=== PATIENT | male | born 1950 | race Caucasian/White ===

== ENCOUNTER 2017-07-16 22:10 | Inpatient (IN) | payer OTHER, MEDICARE ==
[~2017-07-16] VITALS: Ht 182.9 cm; Wt 110.8 kg
[~2017-07-16 22:10] MED LIST: DEPAKOTE ER500 MG PO; FINASTERIDE5 MG PO; FLOMAX0.4 MG PO; HYTRIN 5 M5 MG/1 CAP PO; LANTUS100 UNIT/M SUBQ; METFORMIN HCL500 MG PO; OXYCONTIN10 M1; PREDNISONE50 MG PO; PRILOSEC 20 MG20 MG PO; QUETIAPINE FUM300 MG PO; TRICOR145 MG PO; VENLAFAXIN75 MG/1 T2 PO; VENTOLIN HFA 1818 GM INH; XANAX1 MG PO
[2017-07-16 22:24] VITALS: BP 182/89
[2017-07-16] MEDS ORDERED: ASPIR 8181 MG PO (22:27)
[2017-07-16] MEDS ORDERED: DIVALPROEX SOD500 M1 PO (22:27)
[2017-07-16] MEDS ORDERED: XANAX1 MG PO (22:27)
[2017-07-16] MEDS ORDERED: VITAMIN D5000 UNIT PO (22:28)
[2017-07-16] MEDS ORDERED: TRICOR145 MG PO (22:28)
[2017-07-16] MEDS ORDERED: TRESIBA FL200 UNIT/1 SUBQ (22:29)
[2017-07-16] MEDS ORDERED: HUMALOG KW200 UNIT/1 SUBQ (22:29)
[2017-07-16] MEDS ORDERED: LOSARTAN-HCTZ1 EAC1 PO (22:30)
[2017-07-16] MEDS ORDERED: CONSTULOSE10 GM/152 PO (22:30)
[2017-07-16] MEDS ORDERED: PRILOSEC OTC20 MG PO (22:31)
[2017-07-16] MEDS ORDERED: FISH OIL 1,001000 M2 PO (22:31)
[2017-07-16] MEDS ORDERED: MS CONTIN15 MG PO (22:31)
[2017-07-16] MEDS ORDERED: FLOMAX0.4 MG PO (22:32)
[2017-07-16] MEDS ORDERED: XIFAXAN550 MG PO (22:32)
[2017-07-16] MEDS ORDERED: HYTRIN 1 MG CAP1 MG PO (22:32)
[2017-07-16] MEDS ORDERED: EFFEXOR XR75 MG PO (22:33)
[2017-07-16 22:43] LABS: HEMATOCRIT 37.6 % (42.0-52.0); HEMOGLOBIN 12.8 gm/dL (14.0-18.0); MCH 29.1 pg (26.0-34.0); MCV 85.6 fL (80.0-100.0); MPV 7.7 fl. (7.2-11.1); NUCLEATED RBCS 0 /100WBC; PLATELET COUNT* 158 thou/uL (150-400); RBC 4.39 mil/uL (4.50-6.00); RDW-CV 15.7 % (10.5-14.5); WBC 9.6 thou/uL (4.0-11.0)
[2017-07-16 22:52] LABS: ANION GAP 11 mmol/L (7-16); BUN 31 mg/dL (7-18); CALCIUM 9.4 mg/dL (8.5-10.1); CHLORIDE 95 mmol/L (98-107); CO2 26 mmol/L (21-32); CREATININE 1.8 mg/dL (0.6-1.3); GLUCOSE 236 mg/dL (70-99); POTASSIUM 5.2 mmol/L (3.5-5.1); SODIUM 132 mmol/L (136-145)
[2017-07-16 23:02] LABS: ALBUMIN 3.3 g/dL (3.4-5.0); ALKALINE PHOSPHATASE 41 U/L (46-116); NT-PRO BRAIN NAT PEPTIDE 182 pg/mL (<300); SGOT 123 U/L (15-37); SGPT 106 U/L (30-65); TOTAL BILIRUBIN 1.4 mg/dL (<0.1-1.0); TOTAL PROTEIN 8.4 g/dL (6.4-8.2)
[2017-07-16 23:18] LABS: LIPASE 4240 U/L (73-393)
[2017-07-16 23:21] LABS: URINE BILIRUBIN NEGATIVE (Negative); URINE BLOOD NEGATIVE (Negative); URINE CLARITY CLEAR; URINE COLOR YELLOW; URINE GLUCOSE-RANDOM 1+ (Negative); URINE KETONES NEGATIVE (Negative); URINE LEUKOCYTES-REFLEX NEGATIVE (Negative); URINE NITRITE-REFLEX NEGATIVE (Negative); URINE PROTEIN 1+ (Negative); URINE SPECIFIC GRAVITY 1.015 (1.005-1.030)
[2017-07-16 23:22] LABS: TROPONIN-I LEVEL <0.06 ng/mL (<0.06)
[2017-07-16 23:56] LABS: ABSOLUTE LYMPHOCYTES 0.9 thou/uL (0.8-5.3); ABSOLUTE NEUTROPHILS 7.8 thou/uL (1.6-8.1)
[2017-07-16 23:57] LABS: PLATELET ESTIMATE ADEQUATE
[2017-07-17 01:17] VITALS: BP 182/89
[2017-07-17 04:00] VITALS: BP 114/61
[2017-07-17 04:54] LABS: HEMATOCRIT 35.9 % (42.0-52.0); HEMOGLOBIN 12.1 gm/dL (14.0-18.0); MCH 28.7 pg (26.0-34.0); MCHC 33.7 g/dL (28.0-37.0); MPV 7.5 fl. (7.2-11.1); RBC 4.23 mil/uL (4.50-6.00); RDW-CV 16.1 % (10.5-14.5); WBC 5.7 thou/uL (4.0-11.0)
[2017-07-17 05:20] LABS: ALBUMIN 3.3 g/dL (3.4-5.0); CALCIUM 8.9 mg/dL (8.5-10.1); POTASSIUM 4.3 mmol/L (3.5-5.1); TOTAL BILIRUBIN 1.1 mg/dL (<0.1-1.0); TOTAL PROTEIN 7.8 g/dL (6.4-8.2)
[2017-07-17 07:30] VITALS: BP 109/59
--- NOTE | 2017-07-17 08:09 | NUR ---
ASSUMED CARE OF PATIENT AT 0100 NEW ADMIT THE PATIENT ARRIVES TO UNIT WITH DAUGHTERS AT BEDSIDE HE REMAINS SR ON THE MONITOR O2 SAT MAINTAINED ON 2L NC CONTINUES TO BE UP WITH ASSIST OF 1 WITH CANE TO BR TO THE HOME REGIMEN NEEDS ORDERED MEDICATIONS REVIEWED WITH JUN DAUGHTER AT BEDSIDE FURTHER CLARIFICATION NEEDEED ON HOME PAIN REGIMEN CHRONIC BACK PAIN CONTINUES TO BE EFFECTIVE FOR SX MANAGEMENT SAFETY INTERVENTIONS CONTINUE BED LOWERED WHEELS LOCKED CALL LIGHT IN REACH SIDE RAILS UP REPORT TO BE GIVEN TO ONCOMING RN
[2017-07-17] MEDS ORDERED: QUETIAPINE FUM100 MG PO (08:22)
[2017-07-17] MEDS ORDERED: HUMALOG100 UNIT/1 SUBQ (08:26)
[2017-07-17] MEDS ORDERED: MS CONTIN15 MG PO (08:29)
[2017-07-17 09:16] LABS: INR 1.2; PROTIME 11.4 Seconds (9.20-11.50)
--- NOTE | 2017-07-17 09:59 | EKG ---
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 : 1950 Requested By: Shayy Wei Order Number: [id number] MD: Brad Anderson Measurements Intervals [place] Rate: 86 P: 12 FL: 184 QRS: 24 QRSD: 103 T: 108 QT: 388 QTc: 464 Interpretive Statements Sinus rhythm Abnormal R-wave progression, late transition Nonspecific T abnrm, anterolateral leads Baseline wander in lead(s) II,III,aVF,V5 Compared to ECG 05/31/2014 15:33:09 No significant changes Electronically Signed On 07-17-2017 9:59:11 CDT by Brad Anderson [email or web address] <ELECTRONICALLY SIGNED> By: Brad Anderson MD, FACC 07/17/17 0959 2250 2250 Brad Anderson MD, FAC /EPI
--- NOTE | 2017-07-17 10:18 | NUR ---
ORDER RECEIVED TO ASSIST WITH TRANSFER TO [facility] OR . DISCUSSED WITH DR NATION, PT IS ON TRANSPLANT TEAM AT . PT STATES THAT HE NEEDS A LIVER AND A KIDNEY AND [facility] 'WON'T DO BOTH' SO I HAVE AN APPT TO BE EVAL'D AT [facility] ON 09/15. PT'S 1ST CHOICE IS TO GO TO [facility]. IF NOT ABLE, WILL CONSIDER . CALLED AND FAXED FACE SHEET AND INSURANCE CARDS TO TOSHIA [facility]ACKWE[facility] DR ONE CALL. AWAIT CALL BACK
[2017-07-17 12:00] VITALS: BP 122/70
--- NOTE | 2017-07-17 15:17 | NUR ---
RECEIVED CALL FROM NURSING UNIT THAT PT HAD BEEN ACCEPTED TO [facility]. [facility] COMPLETING PAPERWORK, WILL INFORM FAMILY AND SET UP AMBULANCE
--- NOTE | 2017-07-17 16:13 | NUR ---
RECEIVED TRANSFER ORDERS PER DR NATION. REPORT CALLED TO KWADWO MAE AT [facility]. PATIENT TRANSFERRING TO ROOM [facility]. FAMILY WAS GIVEN 'S PHONE NUMBER AND THE PATIENTS ROOM NUMBER PRIOR TO TRANSFERRING. ALL THE PATIENTS BELONGINGS ARE PACKED AND LEAVING WITH THE PATIENTS DAUGHTER. LEAVING VIA AMBULANCE AT 1610. PAIN MEDICATION GIVEN PRIOR TO TRANSFER PER PATIENTS REQUEST. NO QUESTIONS OR CONCERNS AT DISCHARGE.
== END 2017-07-17 16:09 | disposition short-term general hospital (02) | DRG 439 ==
LOC: M.ERS 22:10 → M.2W 23:32 → M.TBA-ER 23:32 → M.2W 07-17 01:38
PROVIDERS: Emergency Medicine; Internal Medicine; ADMIT Internal Medicine
DX: K85.10 Biliary acute pancreatitis without necrosis or infection (principal); I85.00 Esophageal varices without bleeding; N18.4 Chronic kidney disease, stage 4 (severe); K75.81 Nonalcoholic steatohepatitis (NASH); K72.90 Hepatic failure, unspecified without coma; K80.20 Calculus of gallbladder without cholecystitis without obstruction; E66.9 Obesity, unspecified; K21.9 Gastro-esophageal reflux disease without esophagitis; F17.210 Nicotine dependence, cigarettes, uncomplicated; G89.29 Other chronic pain; N43.3 Hydrocele, unspecified; E87.5 Hyperkalemia; I12.9 Hypertensive chronic kidney disease with stage 1 through stage 4 chronic kidney disease, or unspecified chronic kidney disease; E11.22 Type 2 diabetes mellitus with diabetic chronic kidney disease; F41.9 Anxiety disorder, unspecified; F32.9 Major depressive disorder, single episode, unspecified; Z79.2 Long term (current) use of antibiotics; Z79.899 Other long term (current) drug therapy; Z68.33 Body mass index [BMI] 33.0-33.9, adult; Z85.46 Personal history of malignant neoplasm of prostate; Z79.891 Long term (current) use of opiate analgesic; Z79.82 Long term (current) use of aspirin; Z79.4 Long term (current) use of insulin

== ENCOUNTER 2018-05-01 10:40 | Inpatient (IN) | payer OTHER, MEDICARE ==
[2018-05-01] VITALS (20 sets, daily range): BP systolic 82–131; BP diastolic 30–75
[~2018-05-01] VITALS: Ht 182.9 cm; Wt 85.0 kg
--- NOTE | ~2018-05-01 | CON ---
[address] [address] CONSULTATION Name: CARL TRAORE Room: [address] IN M.R.#: [id number] Admission: 05/01/18 Attend Phys: Niels Villa MD Discharge: Date of : 50 Report #: [id number] THIS REPORT FOR: //name// CC: Neils Beasley HISTORY OF PRESENT ILLNESS: This is a 67-year-old gentleman with past medical history significant for hypertension, diabetes, hyperlipidemia, CKD and end-stage liver disease, who was brought in with hallucinations and confusion. The patient's and brother are at the bedside and they provide most of the history. The patient was brought in hypotensive, lethargic and confused and was therefore, admitted to the ICU. The patient's reports that the patient has had liver disease for a long time and was previously followed at [facility] by Dr. Donna Blankenship. The patient's reports that he was evaluated for transplant and deemed not suitable for liver transplantation, although she is unsure of why. The patient has had issues with encephalopathy in the past, but she denies any episodes of variceal bleeding or ascites. The patient's reports that his end-stage liver disease was thought to be secondary to MCGHEE. On presentation, the patient's blood pressure was in the 60s/40s. His oxygen saturation was in the low-to-mid 80s. The patient was placed on nonrebreather with immediate improvement. The patient was recently discharged from [facility] for similar sort of complications. PAST MEDICAL HISTORY: Hypertension, diabetes, hyperlipidemia, CKD, MCGHEE and cirrhosis. PAST SURGICAL HISTORY: Nonsignificant. FAMILY HISTORY: No family history of liver disease or colorectal cancer. SOCIAL HISTORY: The patient initially quit smoking when he was being evaluated for liver transplantation, but since he was told that he is not a candidate for transplant, he resumed smoking. There is no significant history of alcohol or recreational drug use. REVIEW OF SYSTEMS: Unable to obtain because of the patient's mental status. PHYSICAL EXAMINATION: VITAL SIGNS: Temperature 37.6, pulse rate 80, blood pressure 98/51, respirations 15 and pulse ox 95% on 4 liters. GENERAL: The patient is awake, but not oriented. He is only oriented to person. HEENT: Pupils are equal, round and reactive to [place] [address] CONSULTATION Name: CARL TRAORE Room: [address] IN [facility]#: [id number] Admission: 05/01/18 Attend Phys: Niels Villa MD Discharge: Date of : 50 Report #: [id number] is no scleral icterus. Mucous membranes are moist. There is no congestion. LUNGS: Clear to auscultation bilaterally. CARDIOVASCULAR EXAMINATION: Rate and rhythm regular; S1, S2 present. ABDOMEN: Soft. There is no distention, guarding or rigidity. EXTREMITIES: Warm and well perfused. There is 2+ pitting edema bilaterally and there is asterixis present. LABORATORY DATA: Hemoglobin 11.0, hematocrit 31.8, platelet count 143,000 and WBC count 7.2. Sodium 136, potassium 4.2, chloride 100, bicarbonate 24, BUN 82, creatinine 4.1 and GFR 15. Total bilirubin 0.4, AST 103, ALT 35 and alkaline phosphatase 41. Albumin 2.8. IMAGING: Noncontrast head CT reveals moderate cerebral atrophy. No acute cerebral processes. Chest x-ray, persistent bilateral hilar and interstitial infiltrations with pulmonary engorgement. ASSESSMENT AND PLAN: This is a 67-year-old gentleman with past medical history significant for hypertension, hyperlipidemia, chronic kidney disease and end-stage liver disease, who is presenting with hypotension and confusion. 1. Hypotension. Can consider giving the patient 25 grams albumin b.i.d. to assist with his oncotic pressure while he is admitted to the hospital. 2. Confusion, could be a combination of hypoxia and hepatic encephalopathy when he presented. The patient is currently no longer hypoxic. I am going to place him on some lactulose and rifaximin to assist with the hepatic encephalopathy part. 3. Ascites. I plan on getting abdominal ultrasound with Dopplers to evaluate for ascites and portal vein thrombosis. 4. Infection. Blood cultures have been ordered. Continue antibiotics for now. 5. Goals of care. I discussed with the patient's spouse that the patient is not a transplant candidate. His end-stage liver disease and kidney disease puts him at high risk for hepatic decompensation over the course of the next few weeks and months. The patient and his family needs to discuss among themselves specific goals of care. The patient was seen and examined in the ICU and about 30 minutes were spent with the patient and his spouse obtaining history, performing physical examination and formulating a plan of care. By: 1204 [id number] Leija MD /betsey
[~2018-05-01 10:40] MED LIST changes: +ASPIR 8181 MG PO; +CONSTULOSE10 GM/152 PO; +DIVALPROEX SOD500 M1 PO; +EFFEXOR XR75 MG PO; +FISH OIL 1,001000 M2 PO; +HUMALOG KW200 UNIT/1 SUBQ; +HUMALOG100 UNIT/1 SUBQ; +HYTRIN 1 MG CAP1 MG PO; +LOSARTAN-HCTZ1 EAC1 PO; +MS CONTIN15 MG PO; +PRILOSEC OTC20 MG PO; +QUETIAPINE FUM100 MG PO; +TRESIBA FL200 UNIT/1 SUBQ; +VITAMIN D5000 UNIT PO; +XIFAXAN550 MG PO
[2018-05-01] MEDS ORDERED: OXYCONTIN20 M1 PO (10:58)
[2018-05-01 11:07] LABS: ABSOLUTE EOSINOPHILS 0.1 thou/uL (0.0-0.7); ABSOLUTE LYMPHOCYTES 2.4 thou/uL (0.8-5.3); ABSOLUTE MONOCYTES 0.8 thou/uL (0.0-1.2); ABSOLUTE NEUTROPHILS 3.8 thou/uL (1.6-8.1); BASOPHILS 0.5 %; EOSINOPHILS 1.7 %; HEMATOCRIT 31.8 % (42.0-52.0); LYMPHOCYTES 33.6 %; MCH 30.7 pg (26.0-34.0); MCHC 34.5 g/dL (28.0-37.0); MCV 88.8 fL (80.0-100.0); MONOCYTES 11.1 %; MPV 7.3 fl. (7.2-11.1); NUCLEATED RBCS 0 /100WBC; PLATELET COUNT* 143 thou/uL (150-400); POLYS 53.1 %; RBC 3.58 mil/uL (4.50-6.00); RDW-CV 15.5 % (10.5-14.5); WBC 7.2 thou/uL (4.0-11.0)
[2018-05-01 11:16] LABS: INR 1.2; PROTIME 11.8 Seconds (9.20-11.50)
[2018-05-01 11:25] LABS: ANION GAP 14 mmol/L (7-16); BUN 89 mg/dL (7-18); CALCIUM 7.5 mg/dL (8.5-10.1); CHLORIDE 99 mmol/L (98-107); CO2 22 mmol/L (21-32); CREATININE 6.4 mg/dL (0.6-1.3); GLUCOSE 78 mg/dL (70-99); POTASSIUM 3.6 mmol/L (3.5-5.1); SODIUM 135 mmol/L (136-145); TROPONIN-I LEVEL <0.06 ng/mL (<0.06)
[2018-05-01 11:26] LABS: ALBUMIN 2.8 g/dL (3.4-5.0); ALKALINE PHOSPHATASE 33 U/L (46-116); AMMONIA 26 umol/L (11-32); NT-PRO BRAIN NAT PEPTIDE 173 pg/mL (<300); SGOT 65 U/L (15-37); SGPT 28 U/L (30-65); TOTAL BILIRUBIN 0.5 mg/dL (<0.1-1.0); TOTAL PROTEIN 6.7 g/dL (6.4-8.2)
--- NOTE | 2018-05-01 12:00 | NUR ---
CENTRAL LINE PLACEMENT BY DR GLEZ.PT TOLERATED WELL. TIME OUT CALLED AND PROCEDURE VERIFIED. CONSENT SIGNED AFTER DISCUSSION WITH
--- NOTE | 2018-05-01 13:30 | NUR ---
REPORT CALLED TO ALEJADNRA IN ICU. PT TAKEN TO ROOM 5 VIA CART AND MONITOR
[2018-05-01] MEDS ORDERED: OXYCODONE HCL15 MG PO (13:59)
[2018-05-01] MEDS ORDERED: OXYCONTIN30 MG PO (14:00)
[2018-05-01] MEDS ORDERED: MS CONTIN 30 MG30 MG PO (17:30)
[2018-05-01] MEDS ORDERED: MS CONTIN15 MG PO (17:31)
--- NOTE | 2018-05-01 19:35 | NUR ---
PT ADMITTED TO ICU FOR HYPOTENSION AND WAS FOUND TO HAVE HYPOGLYCEMIA AT THE TIME HE WAS ADMITTED. PT FAMILY AT BEDSIDE MAJORITY OF THE SHIFT AND VERY ATTENTIVE TO THE PATIENT THIS SHIFT. PT ON 6L PER NC AND IS RUNNING SR-ST ON THE MONITOR. PT TOLERATING Q2 TURNS BUT HAS C/O PAIN BUT DUE TO HYPOTENSION HAS NOT BEEN PROVIDED WITH PAIN MEDICATIONS THAT ARE ORDERED. PT HAS TEMP SENSING MEJIAS CATHETER HELD IN PLACE BY STAT LOCK AT THIS TIME. PT HAD NEPHROLOGY CONSULTED AND IT WAS DETERMINED THAT HE WAS NOT A CANIDATE FOR DIALYSIS AT THIS TIME. WILL CONSULT GI AND CARDIOLOGY PRIOR TO LEAVING. PT ON VASOPRESSOR THIS SHIFT THAT HAS BEEN TITRATED TO MAINTAIN MAP >60. REPORT GIVEN TO SIERRA, WILL SIGN OFF AT THIS TIME
--- NOTE | 2018-05-01 23:08 | NUR ---
INITAL ASSESMENT COMLETED AT 1999. PT ALERT AND ORIENTED X4, HAVING TWITCHING AT TIMES. PT'S DAUGHTER SITTING AT BEDSIDE ASSISTING WITH CARE. DAUGHTER REPORTS PT IS CONFUSED, RESTLESS AND IMPULSIVE AT NIGHT, PULLS OUT IV, CATHETERS AND LINES AT NIGHT. DAUGHTERS ALLOWED TO SIT WITH PT DUE TO INFORMATION GIVEN. PT RESTLESS AD IMPULSIVE SINCE 2129. PULLING AT CATHETER AND LINES. PT REDIRECTS EASILY FOR FAMILY AT BEDSIDE.
[2018-05-02] VITALS (31 sets, daily range): BP systolic 83–135; BP diastolic 33–101
[2018-05-02 05:01] LABS: ALBUMIN 2.8 g/dL (3.4-5.0); CALCIUM 7.9 mg/dL (8.5-10.1); POTASSIUM 4.2 mmol/L (3.5-5.1); TOTAL BILIRUBIN 0.4 mg/dL (<0.1-1.0); TOTAL PROTEIN 6.9 g/dL (6.4-8.2)
[2018-05-02 05:18] LABS: CREATININE 4.1 mg/dL (0.6-1.3)
--- NOTE | 2018-05-02 06:24 | NUR ---
PT SLOWLY PROGRESSING TOWARD GOALS. KIDNEY FUNCTION SLIGHTLY IMPROVED ON AM LABS. RESULTS REPORTED TO DR ROD. MAP MAITAINED > 65 ON LEVOPHED DRIPA AT 5 MCG. PT MAINTAINING O2 SAT > 90% ON 6 LITERS HIGH FLOW.
--- NOTE | 2018-05-02 08:22 | CON ---
[address] [address] CONSULTATION Name: CARL TRAORE Bowen Room: [address] IN M.R.#: [id number] Admission: 05/01/18 Attend Phys: Niels Villa MD Discharge: Date of : 50 Report #: [id number] THIS REPORT FOR: //name// CC: Niels Salgado TYPE OF REPORT: Cardiology consult. INDICATION: Hypoxia, acute respiratory failure and acute renal failure. HISTORY OF PRESENT ILLNESS: The patient is a 67-year-old gentleman with known end-stage liver disease. He has documented chronic renal insufficiency. He has hypertension. There is no history of previous cardiac disease. The patient was admitted through the Emergency Room after EMS found him confused, hallucinating, hypoxic and hypotensive. His blood pressure was apparently 60/40. O2 saturations were in the low-to-mid 80s. The patient was placed on oxygen, brought to the emergency room, brought to the ICU, placed on pressors and is now normotensive. He remains confused and lethargic. He is not complaining of chest pain. He denies any prior cardiac history. Per the patient's daughter, he may have some carotid disease. Chest x-ray did not show overt heart failure. EKG showed sinus rhythm without acute ST-segment abnormality. PAST MEDICAL HISTORY: 1. End-stage renal disease. 2. Chronic renal insufficiency. 3. Nonalcoholic steatohepatitis with chronic liver dysfunction and cirrhosis. 4. History of pancreatitis. 5. Type 2 diabetes mellitus. 6. Hypertension. 7. Obesity. 8. History of prostate cancer. 9. GERD. 10. History of esophageal varices. HOME MEDICATIONS: Alprazolam 1 mg p.o. t.i.d., aspirin 81 mg daily, divalproex 500 mg b.i.d., vitamin D3 5000 units daily, fenofibrate 145 mg daily, Tresiba 200 units subcutaneously in the evening, lactulose 45 mL p.o. t.i.d., losartan/hydrochlorothiazide 100/25 one tablet daily, fish oil 1000 mg to 4 tablets daily, omeprazole 20 mg daily, Xifaxan 550 mg p.o. b.i.d., Flomax 0.4 mg daily, Hytrin 1 mg b.i.d., lispro insulin 20 units subcutaneously a.c., Effexor XR 75 mg daily, Seroquel 100 mg 5 tablets at bedtime, Humalog sliding scale subcutaneously a.c. and at bedtime and oxycodone ER 20 mg q. 4-6 hours p.r.n. PHYSICAL EXAMINATION: VITAL SIGNS: Blood pressure 95/51 [place] 99[place] [address] CONSULTATION Name: CARL TRAORE Room: [address] IN [facility]#: [id number] Admission: 05/01/18 Attend Phys: Niels Villa MD Discharge: Date of : 50 Report #: [id number] GENERAL: This is a morbidly obese white male who is lethargic. He does arouse. HEENT: Extraocular muscles appear to be intact. Mucous membranes are moist. NECK: Shows a thick neck without obvious jugular venous distention. CHEST: Reveals clear lung friedman anteriorly. CARDIAC: Reveals a regular rhythm without gallop or murmur. ABDOMEN: Protuberant and firm. EXTREMITIES: Without edema and warm to touch. LABORATORY DATA: Labs are reviewed. Sodium 136, potassium 4.0, chloride 99, bicarbonate 23, BUN 86, creatinine 5.9 and serum glucose 86. Troponin less than 0.06. NT-pro-BNP 173. White blood cell count 7.2; hemoglobin 11.0 and platelet count 143,000. RADIOLOGICAL DATA: Chest x-ray shows some volume loss in the right lung and lung friedman appear clear. IMPRESSION AND RECOMMENDATIONS: 1. Acute respiratory failure. Etiology not clear. The patient takes multiple medications that may be contributing. He is arousable and has adequate oxygen saturations on supplemental oxygen at this time. 2. Acute renal failure per Nephrology. 3. End-stage liver disease. The patient apparently follows with [facility]'s transplant team. 4. Hypertension. Blood pressure adequately controlled at present. I see no evidence of heart failure at this time. We would check echocardiogram. No further recommendations from a cardiac standpoint. <ELECTRONICALLY SIGNED> By: Ryan Potter MD, FACC 05/02/18 0822 1612 0004Micalyson Potter MD, FACC /nt
--- NOTE | 2018-05-02 12:11 | EKG ---
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: CODIE : 1950 Requested By: Tucker Aleman Order Number: [id number] MD: Ryan Potter Measurements Intervals [place] Rate: 75 P: 30 NV: 198 QRS: -4 QRSD: 107 T: 117 QT: 434 QTc: 485 Interpretive Statements Sinus rhythm Borderline low voltage, extremity leads Nonspecific T abnormalities, lateral leads Inferior infarct age indeterminate possible Compared to ECG 07/16/2017 22:50:00 T-wave abnormality now present Electronically Signed On 05-02-2018 12:11:21 CDT by Ryan Potter [email or web address] <ELECTRONICALLY SIGNED> By: Ryan Potter MD, FACC 05/02/18 1211 1103 1103 Ryan Potter MD, FAC /EPI
--- NOTE | 2018-05-02 19:44 | NUR ---
PT VSS THIS SHIFT AND IS DOING MUCH BETTER WITH HIS BP AND HAS TITRATED DOWN TO 1MCG AT THIS TIME. PT TOLERATING DIET AND HAS BEEN ALERT SINCE HE WENT FOR HIS CT OF THE HEAD DUE TO INCREASED LETHARGY AND DROWSINESS THIS MORNING. PT HAS PERIODS OF TIME WHERE HE IS CONFUSED AND ONLY ORIENTED X2 BUT THIS SEEMS TO CLEAR WITH FAMILY PRESENCE, NOC SHIFT RN NOTIFIED. PT TOLERATING RA AT THIS TIME WITH NO COMPLICATIONS. PT HAS TEMP SENSING MEJIAS AND I/O'S HAVE BEEN DOCUMENTED FOR THIS SHIFT. PT HAS A SWOLLEN SCROTUM AND A WOUND THAT WAS NOTED BETWEEN HIS LEGS, NO PIX WAS OBTAINED DUE TO FAMILY PRESENCE THIS SHIFT AND NOC SHIFT RN WAS UPDATED TO THIS. FAMILY SPOKE WITH MOLDING MACHINE OPERATOR REGARDING VISITATION POLICIES. FAMILY LEFT WITHOUT BEING ASKED AT TIME OF REPORT THIS EVENING.
[2018-05-03] VITALS: BP 127/56
[2018-05-03 02:00] VITALS: BP 134/54
[2018-05-03 04:00] VITALS: BP 124/57
--- NOTE | 2018-05-03 04:42 | NUR ---
SPOKE WITH DR NATION ABOUT THE POSSIBILITY OF DOWNGRADING MR HATFIELD FROM ICU STATUS, TO TELE STATUS. PT HAS BEEN OFF OF PRESSORS FOR SEVERAL HOURS, AND HAS REMAINED STABLE. DR NATION DID AGREE TO DOWNGRADE PATIENT TO TELEMETRY STATUS, INFORMATION RELAYED TO SHIRA MAE.
--- NOTE | 2018-05-03 05:01 | NUR ---
gave report to Marii in 2 E. pt will be going to room 233. pt was taken off levo last night at 1999. pt tolerating well. vital sings wnl. pt currently sleeping. DTR and mother at the bedside and aware he will be going to a different room. family voiced last night that they wanted to be transfered out to [facility] d/t there Support Services Coordinator being there. spoke with graphics production specialist last night about family request Dr stated that he would not be doing physician to physician report over the phone. family aware that is ok with him transferring out once sees him in the morning. will continue to monitor.
--- NOTE | 2018-05-03 08:02 | NUR ---
RECEIVED REPORT AND ASSUMED CARE AT 0515. PT TRANSPORTED BY BED FROM ICU TO ROOM 224. VSS. CARDIAC MONITORING IN PLACE. PT DENIES COMPLAINTS OF PAIN. PT FAMILY REPORTING WANTING TO TRANSFER TO [facility] PT SPECIALIST IS LOCATED. HOURLY ROUNDING COMPLETED AND ALL NEEDS MET.
--- NOTE | 2018-05-03 08:08 | CON ---
[address] [address] CONSULTATION Name: CARL TRAORE Room: [address] IN M.R.#: [id number] Admission: 05/01/18 Attend Phys: Niels Villa MD Discharge: Date of : 50 Report #: [id number] THIS REPORT FOR: //name// CC: Niels Beasley DATE OF SERVICE: 05/02/2018 INFECTIOUS DISEASE CONSULTATION ATTENDING PHYSICIAN: Dr. Villa. REASON FOR EVALUATION: Sepsis with multiorgan dysfunction. HISTORY OF PRESENT ILLNESS: Chart reviewed, the patient examined. This is a 67-year-old with known end-stage hepatic disease, has diabetes mellitus as well, who was actually just discharged from other hospital. However, he clinically deteriorated at home. He had profound encephalopathy. He became quite somnolent at that point. He had poor p.o. intake. He was evaluated and was found to be hypotensive with systolic pressures in the 60s and saturations in the low 80s as a percent. In spite of that, he had aggressive supplemental oxygen. It increased to the only low 90s. He did receive some fluid. Diagnostic evaluation showed evidence of bilateral infiltrates on chest x-ray. He was noted to have a creatinine elevated at 6.4. It is not clear that he had any fevers at home, although he was noted to have low-grade temperature elevated at 99.7 since admission. At this point, he is not on pressor support. On questioning, it is really difficult to ascertain details of his history from him. He is quite somnolent. The does supply some insight and states really clinical course occurred over the last 2-3 weeks in terms of his deterioration. Those records are unavailable, although per spouse, it was not particularly noted for a confirmation of any particular diagnosis. He was empirically started on therapy with rifaximin. ALLERGIES: None known. MEDICATIONS: Include divalproex, tamsulosin, cholecalciferol, aspirin, morphine, enoxaparin, quetiapine, rifaximin and fish oil. PAST MEDICAL HISTORY: Includes as noted above, diabetes mellitus type 2. I think he has got peripheral neuropathy. He has some vasculopathy, end-stage liver disease, history of hypertension, depression, anxiety, history of prostate cancer and reflux. SOCIAL HISTORY: [place] [address] CONSULTATION Name: CARL TRAORE Room: [address] IN [facility]#: [id number] Admission: 05/01/18 Attend Phys: Niels Villa MD Discharge: Date of : 50 Report #: [id number] FAMILY HISTORY: Noncontributory. REVIEW OF SYSTEMS: Not obtainable. PHYSICAL EXAMINATION: GENERAL: He appears acutely and chronically ill. He is quite somnolent. He does arouse briefly. It is not clear that he is oriented. He did not make any statements that suggest hallucinations at this point. He is on supplemental oxygen. VITAL SIGNS: Temperature overnight max 99.7, pulse 80, respirations 11 and blood pressure is 98/51. SKIN: Warm, dry. HEENT: Normocephalic. Extraocular muscles are intact. NECK: Supple. LUNGS: Few scattered coarse breath sounds. HEART: Regular. There is a soft systolic murmur. ABDOMEN: Protuberant, firm. I cannot entirely exclude peritoneal signs. GENITOURINARY: Deferred. RECTAL: Deferred. LABORATORY DATA: Initial CBC: White count of 7.2, H and H 7.0 and 31.8 and platelets of 143,000. Electrolytes: Sodium 135, potassium 3.6, chloride 99, bicarbonate is 22, anion gap of 14, BUN and creatinine 89 and 6.4 and glucose of 78. AST of 65, ALT of 28. Total protein of 67. Albumin of 2.8. Chest x-ray showed bilateral perihilar interstitial infiltrates. PT of 11.8, INR of 1.2. Prealbumin of 21.5. CT head shows moderate cerebral atrophy, no acute process. ASSESSMENT AND PLAN: Shock, likely multifactorial. I cannot entirely exclude an infectious etiology. Certainly, he had hypoxemia. There is a question of pneumonitis, probably on the basis of aspiration. It is reasonable to initiate empiric therapy at this point. We will give a single dose of vancomycin and start on cefepime as well. I do not think any sputum is forthcoming and we will await and go ahead and do blood cultures as well. He is critically ill. I did speak to the spouse. We will attempt to address any potential reversible factors at this point. Thank you. We will follow. <ELECTRONICALLY SIGNED> By: Alfonso Estrella MD 05/03/18 0808 1117 [id number] Estrella MD /nt
--- NOTE | 2018-05-03 11:43 | NUR ---
ASSUMED CARE OF PATIENT THIS AM AT 0800. PATIENT IS LETHARGIC, ORIENTED TO PERSON ONLY THIS AM. HE DENIES PAIN. FAMILY IS IN AT THE BEDSIDE. PATIENT'S BLOOD SUGAR WAS LOW AT 45. JUICE AND BREAKFAST GIVEN TO PATIENT AND BLOOD SUGAR WAS UP TO 79 AFTER MEAL. PATIENT IS NOW ALERT AND ORIENTED X 4. FAMILY SAYS THAT PATIENT IS TO BE TRANSFERRED TO [facility]. TELE SHOWS NSR. HE WAS ASSISTED UP TO THE [facility] FOR A LARGE BM. PATIENT RESTING IN BED AT THIS TIME.
[2018-05-03 11:58] VITALS: BP 132/66
--- NOTE | 2018-05-03 13:36 | NUR ---
SMILEY met with Pt, and dtr in room, Pt/family requesting that Pt be transferred to [facility], which is where Pt's Drs are. Dr Fortune in agreement with transfer, SMILEY contacted [facility] transfer team, faxed over facesheet and insurance cards. Awaiting call back with decision to accept.
[2018-05-03 16:00] VITALS: BP 142/68
--- NOTE | 2018-05-03 16:41 | 2DMMODE ---
[place] [address] 2 D/M-MODE ECHOCARDIOGRAM Name: EUGENIECARL Room: [address] IN R#: [id number] Admission: 05/01/18 Attend Phys: Niels Villa, Discharge: Date of : 50 Date of Service: 05/03/18 1641 Report #: [id number] THIS REPORT FOR: //name// APPROVED REPORT Study performed: 05/03/2018 10:43:02 EXAM: Comprehensive 2D, Doppler, and color-flow Echocardiogram Patient Location: In-Patient Room #: [facility] Status: routine BSA: 2.46 HR: 70 bpm BP: 124/57 mmHg Rhythm: NSR Other Information Study Quality: Good Indications Hypotension Dyspnea Rule out effusion 2D Dimensions IVSd: 9.94 (7-11mm) LVOT Diam: 21.53 (18-24mm) LVDd: 48.47 mm PWd: 10.20 (7-11mm) Ascending Ao: 40.39 (22-36mm) LVDs: 29.97 (25-40mm) Aortic Root: 34.98 mm Volumes Left Atrial Volume (Systole) LA ESV Index: 27.00 mL/m2 Aortic Valve AoV Peak Solomon.: 2.55 m/s AO Peak Gr.: 25.98 mmHg LVOT Max P.58 mmHg AO Mean Gr.: 12.39 mmHg LVOT Mean P.09 mmHg LVOT Max V: 1.91 m/s AO V2 VTI: 44.08 cm LVOT Mean V: 1.22 m/s VIVIEN (VTI): 3.32 cm2 LVOT V1 VTI: 40.16 cm Mitral Valve E/A Ratio: 1.09 [place] [address] 2 D/M-MODE ECHOCARDIOGRAM Name: CARL TRAORE Room: [address] IN .R.#: [id number] Admission: 05/01/18 Attend Phys: Niels Villa, Discharge: Date of : 50 Date of Service: 05/03/18 1641 Report #: [id number] MV Decel. Time: 198.52 ms MV E Max Solomon.: 1.33 m/s MV PHT: 57.57 ms MVA (PHT): 3.82 cm2 TDI E/Lateral E': 9.50 E/Medial E': 9.50 Medial E' Solomon.: 0.14 m/s Lateral E' Solomon.: 0.14 m/s Pulmonary Valve PV Peak Solomon.: 1.31 m/s PV Peak Gr.: 6.91 mmHg Left Ventricle The left ventricle is normal size. There is normal LV segmental wall motion. There is normal left ventricular wall thickness. Left ventricular systolic function is normal. The left ventricular ejection fraction is within the normal range. LVEF is 65%. The left ventricular diastolic function is normal. Right Ventricle The right ventricle is normal size. The right ventricular systolic function is normal. Atria The left atrium size is normal. The right atrium size is normal. Aortic Valve Mild aortic valve sclerosis. No aortic regurgitation is present. There is no aortic valvular stenosis. Mitral Valve There is mitral annular calcification. Trace mitral regurgitation. No evidence of mitral valve stenosis. Tricuspid Valve The tricuspid valve is normal in structure. Unable to assess PA pressure. Trace tricuspid regurgitation. Pulmonic Valve The pulmonary valve is normal in structure. There is no pulmonic valvular regurgitation. Great Vessels The aortic root is normal in size. IVC [place] [address] 2 D/M-MODE ECHOCARDIOGRAM Name: CARL TRAORE Room: [address] IN [facility]#: [id number] Admission: 05/01/18 Attend Phys: Niels Villa, Discharge: Date of : 50 Date of Service: 05/03/18 1641 Report #: [id number] collapses >50% with inspiration. Pericardium There is no pericardial effusion. <Conclusion> The left ventricle is normal size. There is normal left ventricular wall thickness. Left ventricular systolic function is normal. The left ventricular ejection fraction is within the normal range. LVEF is 65%. The left ventricular diastolic function is normal. The right ventricle is normal size. The left atrium size is normal. Mild aortic valve sclerosis. No aortic regurgitation is present. There is no aortic valvular stenosis. There is mitral annular calcification. Trace mitral regurgitation. No evidence of mitral valve stenosis. The tricuspid valve is normal in structure. IVC is normal in size and collapses >50% with inspiration. There is no pericardial effusion. There is normal LV segmental wall motion. <ELECTRONICALLY SIGNED> By: Ruiz Danielson MD, FACC 05/03/18 164 40 40 Ruiz Danielson MD, FACC /INF
[2018-05-03 20:00] VITALS: BP 130/55
[2018-05-04] VITALS: BP 111/47
--- NOTE | 2018-05-04 03:50 | NUR ---
ASSUMED CARE OF PT AFTER REPORT AT 1930. PT A&OX4. VSS. PHYSICAL ASSESSMENT COMPLETED AND CHARTED. PT ON O2 AT 3L NC WITH 97% O2 SAT. PT TRACING SR ON TELE. PT WITH EPISODES OF INCONTINENT BLADDER. PT TURNED TO SIDES. PT COMPLAINED OF RIGHT SHOULDER PAIN- PAIN MEDS GIVEN PER APR. PT RESTED WELL ON BED. HOURLY ROUNDING OBSERVED. CALL LIGHT WITHIN REACH.
[2018-05-04 04:51] VITALS: BP 119/58
[2018-05-04 05:08] LABS: HEMATOCRIT 28.4 % (42.0-52.0); HEMOGLOBIN 9.7 gm/dL (14.0-18.0); MCH 30.2 pg (26.0-34.0); MCHC 34.1 g/dL (28.0-37.0); MCV 88.4 fL (80.0-100.0); MPV 7.8 fl. (7.2-11.1); RBC 3.22 mil/uL (4.50-6.00); RDW-CV 15.3 % (10.5-14.5); WBC 5.4 thou/uL (4.0-11.0)
[2018-05-04 05:38] LABS: CALCIUM 8.9 mg/dL (8.5-10.1); CREATININE 1.2 mg/dL (0.6-1.3); TOTAL BILIRUBIN 0.6 mg/dL (<0.1-1.0); TOTAL PROTEIN 6.9 g/dL (6.4-8.2)
[2018-05-04 08:00] VITALS: BP 141/63
--- NOTE | 2018-05-04 11:42 | NUR ---
ASSUMED PT CARE AT 0730, FULL ASSESMENT DONE CHARTED. PT ORIENTED X4 BUT IS SLIGHTLY DROWSY AND FORGETFUL AT TIMES. PT C/O PAIN TO LUMBAR BACK AND BUTTOCK. PT REPOSITIONED PER CHARTING Q2 HRS. PT UP WITH 1 ASSIST, UNSTEADY ON FEET, SAT IN RECLINER FOR BREAKFAST. VSS, SR ON THE MONITOR. USES CALL LIGHT APPROPRIALTY. WILL CONTINUE TO MONITOR
--- NOTE | 2018-05-04 12:05 | NUR ---
Discussed hospice v. palliative care with 2 dtrs. Set up info visit with [facility] for tomorrow at 3pm per dtr's request. CM will fax referral info to [facility].
[2018-05-04 13:02] VITALS: BP 161/71
[2018-05-04 16:00] VITALS: BP 150/72
--- NOTE | 2018-05-04 16:42 | CON ---
[facility] [address] [place] [address] CONSULTATION Name: CARL TRAORE Room: [address] IN M.R.#: [id number] Admission: 05/01/18 Attend Phys: Niels Villa MD Discharge: Date of : 50 Report #: [id number] THIS REPORT FOR: //name// CC: Niels Beasley DATE OF SERVICE: 05/01/2018 REQUESTING PHYSICIAN: Niels Villa M.D. REASON FOR CONSULTATION: Acute kidney injury. HISTORY OF PRESENT ILLNESS: The patient is very unfortunate 67-year-old gentleman, medical history significant for end-stage renal disease. He was seen here several months ago and requested transfer to [facility]. He needs to follow with the transplant team at , but then trying to change it to [facility]. In any case, he presents now with complaints of feeling really weak. He was very hypotensive and some hallucinations. Oxygen saturation was very low, so he was hypoxic, was brought to Emergency Room, blood pressure was 60/40. He was given some fluids. Blood pressure is slightly up, but still low and his creatinine is up to 6.4 with baseline somewhere in the mid 3's. PAST MEDICAL HISTORY: 1. End-stage liver disease. 2. Chronic kidney disease stage 4. 3. Depression. 4. Diabetes mellitus type 2. 5. History of prostate cancer. 6. GERD. MEDICATIONS: Prior to admission reviewed from my standpoint, he was on losartan with hydrochlorothiazide. REVIEW OF SYSTEMS: The patient is very weak and can barely assisting in conversation. SOCIAL HISTORY: No tobacco or alcohol abuse. FAMILY HISTORY: No history of renal disease. PHYSICAL EXAMINATION: GENERAL: He is very lethargic. VITAL SIGNS: Blood pressure 79/50 and heart rate 99. HEENT: Pupils are round. Oral mucosa dry. NECK: [place] [address] CONSULTATION Name: CARL TRAORE Room: [address]#: [id number] Admission: 05/01/18 Attend Phys: Niels Villa MD Discharge: Date of : 50 Report #: [id number] LUNGS: Decreased air movements. CARDIOVASCULAR: Regular rate. ABDOMEN: Obese, distended. EXTREMITIES: Lower extremities without edema. RADIOLOGICAL DATA: Chest x-ray showed some bilateral perihilar interstitial infiltration with pulmonary venous engorgement. LABORATORY REPORT: White count 7.2 thousand, hemoglobin 11.0, platelet count 143,000. Serum sodium 134, potassium 3.6, chloride 99, BUN 89, creatinine 6.4. ASSESSMENT: 1. Acute kidney injury due to hypotension. 2. Hypotension, not clear, the reason for that possibly due to poor p.o. intake and due to losartan with hydrochlorothiazide. 3. End-stage liver disease. 4. Chronic kidney disease stage 4. PLAN: No dialysis at this point. The patient is very hypotensive and will not tolerate dialysis now. We will support with some fluids, pressors, watch his kidney function and if he is more stable tomorrow and renal function not better, we will continue dialysis tomorrow. <ELECTRONICALLY SIGNED> By: Troy Hauser MD 05/04/18 1642 [id number] Hauser MD /nt
--- NOTE | 2018-05-04 19:57 | NUR ---
PT MORE CONFUSED/AGITATED THIS AFTERNOON. PT UP MULTIPLE TIMES TRYING TO GET COMFORTABLE OR GO TO THE BATHROOM. PTS DAUGHTERS AT THE BEDSIDE, VOICED CONCERN THAT HE IS SAYING THINGS THAT ARE NOT IN HIS CHARACTER. PT STATES HE WANTS TO GO HOME. HE HAS BEEN INCONTINANT OF B/B MULTIPLE TIMES THIS AFTERNOON, LININS CHANGED SEVERAL TIMES. PT STATES HE DOES NOT WANT TO TAKE ANY MORE OF THE LACTULOSE. C/O BUTTOCK AND BACK PAIN, PT TURNED NEEDED, BARRIOR CREAM APPLIED TO BUTTOCK. PTS BED ALARM ON, FALL PRECAUTIONS IN PLACE. REPORT GIVEN TO TU MARTIN
[2018-05-04 20:00] VITALS: BP 143/63
[2018-05-05] VITALS: BP 162/74
[2018-05-05 04:00] VITALS: BP 135/66
--- NOTE | 2018-05-05 04:39 | NUR ---
PT LETHARGIC AROUSABLE. PAIN IN BACK MORPHINE ONE TIME ORDER 3MG IVP GIVEN W/ SCHEDULED DOSE MORPINE CONTROLLED RELEASE AND IVP ATIVAN. MORHINE IMMEDIATE RELEASE AND ATIVAN GIVEN THIS AM. ONE LARGE BM THIS AM. PT REFUSED TO WEAR TELEMETRY. DR GRESHAM NOTIFIED. ORDER TO DC TELEMETRY. [facility] SEEING TODAY FOR PALATIVE CARE.
[2018-05-05 05:55] LABS: HEMATOCRIT 27.6 % (42.0-52.0); HEMOGLOBIN 9.6 gm/dL (14.0-18.0); MCH 30.6 pg (26.0-34.0); MCHC 34.6 g/dL (28.0-37.0); MCV 88.5 fL (80.0-100.0); MPV 7.7 fl. (7.2-11.1); RBC 3.12 mil/uL (4.50-6.00); RDW-CV 15.1 % (10.5-14.5); WBC 5.3 thou/uL (4.0-11.0)
[2018-05-05 06:04] LABS: CREATININE 1.1 mg/dL (0.6-1.3); MAGNESIUM 1.6 mg/dL (1.8-2.4)
[2018-05-05 08:38] VITALS: BP 160/113
--- NOTE | 2018-05-05 08:41 | NUR ---
ASSUMED PT. CARE AND RECEIVED REPORT AT 0730. PT INITIALLY GROGGY IN RECLINER, NOT ANSWERING DIRECT QUESTIONS AND MOANING. IV ANTIVAN GIVEN. PT. BEGAN TALKING WITH STAFF, ORIENTED TO SELF. RATES PAIN 3/10 IN BACK CURRENTLY. BP AND RESP. RATE ELEVATED THIS MORNING, REFER TO CHARTING. ON 2L NC @ 100%. FULL ASSESSMENT COMPLETED, REFER TO CHARTING. PT. DAUGHTERS AT BEDSIDE. PT. INCONT. OF URINE, CLEANED AND ASSISTED BACK TO BED WITH HELP OF 2. CALL LIGHT IN REACH, FALL PRECAUTIONS IN PLACE. WILL CONTINUE WITH PLAN OF CARE.
--- NOTE | 2018-05-05 09:27 | NUR ---
Margret from [facility] to meet with family today at 3pm. Updated dtr in room.
[2018-05-05 10:50] VITALS: BP 146/72
--- NOTE | 2018-05-05 14:22 | NUR ---
I HAVE REVIEWED THE STUDENT'S CHARTING.
[2018-05-05 14:36] VITALS: BP 138/56
[2018-05-05 16:10] VITALS: BP 134/65
--- NOTE | 2018-05-05 17:14 | NUR ---
FAMILY MEMBERS (2 DAUGHTERS/) AND PATIENT MET WITH YANET FROM [facility] TO DICUSS THE BENEFITS OF HOSPICE AND PALLATIVE CARE AT 1500. PRIOR TO MAKING A DECISION, FAMILY REQUESTED TO SPEAK WITH DR. GRESHAM FOR HIS MEDICAL OPINION - PHYSICIAN MET WITH FAMILY AT 1705. AT 1714, FAMILY APPROACHED THIS RN TO NOTE THEY DECIDED TO PROCEED WITH HOSPICE SERVICES AND WOULD LIKE TO GET THE PATIENT HOME THIS EVENING IF AT ALL POSSIBLE.
--- NOTE | 2018-05-05 17:18 | NUR ---
RN CALLED [facility] AND SPOKE WITH GIUSEPPE - CALL PLACED TO TRUDI THE EVENING RN TO DISCUSS PLAN. RN AWAITING RETURN CALL.
--- NOTE | 2018-05-05 17:26 | NUR ---
TU BRUSH, FROM [facility] CALLED THIS RN BACK. PER CHRISTOPHER BRUSH, SWS, WOULD BE OUT BEFORE 1900 TO COMPLETE THE NECESSARY PAPERWORK; HOWEVER, DEPENDING ON THE PATIENTS DME NEEDS FOR HOME IT COULD HINDER IF THE PATIENT WENT TONIGHT OR IN THE MORNING. RN TO MEET WITH FAMILY TO DISCUSS NEEDS AND THEN CALL TRUDI BACK.
--- NOTE | 2018-05-05 17:29 | NUR ---
RN MET WITH FAMILY WHO NOTED THEY NEEDED THE FOLLOWING EQUIPMENT: HOSPITAL BED, OXYGEN, AND BEDSIDE COMMODE. RN WILL CALL TRUDI BACK WITH [facility] TO PROVIDE THE ABOVE INFORMATION.
--- NOTE | 2018-05-05 17:41 | NUR ---
THIS RN CALLED TRUDI WITH [facility] AND PROVIDED THE LIST OF EQUIPMENT THE FAMILY IDENTIFIED THEY WOULD NEED. PER TRUDI, THE HOSPITAL BED COULD BE A CHALLENGE AND ALL DME EQUIPMENT COULD TAKE UP TO 4-6 HOURS FOR DELIVERY. IF THE FAMILY WAS OKAY WITH THIS, THE [employer] COULD MEET THE FAMILY AT THEIR HOME AROUND 1999 TO COMPLETE THE ADMISSION ASSESSMENTS. RN TOLD TRUDI SHE WOULD RELY THE MESSAGE AND CALL HER BACK IF THERE WAS ANY CONCERNS.
--- NOTE | 2018-05-05 17:45 | NUR ---
RN MET WITH THE FAMILY TO RELY THE MESSAGE FROM TRUDI REGARDING DME EQUIPMENT. PER THE FAMILY AND PATIENT, THEY COULD MANAGE WITHOUT THE BED AND COMMODE OVERNIGHT BUT WANTED TO ENSURE THERE WAS OXYGEN AND ADEQUATE PAIN MEDICATION SO THE PATIENT DID NOT SUFFER. RN TO CALL TRUDI AND LET HER KNOW THE FAMILIES WISHES.
--- NOTE | 2018-05-05 18:20 | NUR ---
TU WATKINS WITH [facility] [employer] FOR TRUDI - PENDING CALL BACK.
--- NOTE | 2018-05-05 18:25 | NUR ---
TRUDI CALLED THIS RN AND WAS UPDATED ON THE PATIENT'S WISHES. PER TRUDI SHE HAS ALREADY ORDERED THE DME EQUIPMENT SO WE NEEDED TO ENSURE SOMEONE WAS AVAILABLE BY 1999 AT THE HOUSE TO SIGN FOR THE EQUIPMENT - FAMILY NOTIFIED. AWAITING THE ARRIVAL OF THE [facility] TO FILL OUT PAPERWORK.
--- NOTE | 2018-05-05 18:32 | NUR ---
RN CALLED TRUDI BACK TO VERIFY SHE WAS GOOD TO TAKE OUT THE PATIENT'S CENTRAL LINE AND THAT IT WOULD NOT BE NEEDED FOR MEDICATION. PER TRUDI THE HOSPICE COMPANY WILL NOT UTILIZE IT - RN GOING TO REMOVE PRIOR TO DISCHARGE.
--- NOTE | 2018-05-05 18:52 | NUR ---
HOSPITALIST PAGED TO DISCUSS PAIN MEDICATION TO ENSURE PATIENT IS COMFORTABLE ON HIS TRIP HOME.
--- NOTE | 2018-05-05 19:02 | NUR ---
THIS RN RECEIVED A CALL BACK FROM THE HOSPITALIST. HOSPITALIST GAVE PERMISSION TO GIVE THE PATIENTS 2100 SCHEDULED DOSE OF MORPHINE IR EARLY - SEE EMAR FOR ADMINISTRATION.
--- NOTE | 2018-05-05 19:40 | NUR ---
PATIENT DISCHARGED TO HOME WITH HOSPICE CARE - [facility]. PATIENT WAS TRANSPORTED TO PRIVATE VEHICLE VIA WHEELCHAIR WITH ALL PATIENT BELONGINGS. PATIENT WAS ACCOMPANIED BY DAUGHTER AND . ALL HOSPICE PAPERWORK COMPLETED AND THE RN IS TO MEET THE PATIENT AT HIS HOME. PATIENT WAS IN STABLE CONDITION UPON DISCHARGE.
== END 2018-05-05 22:37 | disposition hospice, home (50) | DRG 871 ==
LOC: M.ERS 10:40 → M.2W 11:52 → M.ICU 11:52 → M.TBA-ER 11:52 → M.ICU 13:29 → M.2W 05-03 05:28
PROVIDERS: Emergency Medicine; Family Medicine; Internal Medicine Nephrology
PROC: 02HV33Z Insertion of Infusion Device into Superior Vena Cava, Percutaneous Approach (ICD-10-PCS; principal; 2018-05-01)
DX: A41.9 Sepsis, unspecified organism (principal); J96.01 Acute respiratory failure with hypoxia; J18.9 Pneumonia, unspecified organism; N17.9 Acute kidney failure, unspecified; N18.4 Chronic kidney disease, stage 4 (severe); R18.8 Other ascites; I13.0 Hypertensive heart and chronic kidney disease with heart failure and stage 1 through stage 4 chronic kidney disease, or unspecified chronic kidney disease; K72.90 Hepatic failure, unspecified without coma; E11.22 Type 2 diabetes mellitus with diabetic chronic kidney disease; F32.9 Major depressive disorder, single episode, unspecified; F41.9 Anxiety disorder, unspecified; E66.9 Obesity, unspecified; K21.9 Gastro-esophageal reflux disease without esophagitis; I50.9 Heart failure, unspecified; I95.9 Hypotension, unspecified; F17.210 Nicotine dependence, cigarettes, uncomplicated; Z79.82 Long term (current) use of aspirin; Z68.25 Body mass index [BMI] 25.0-25.9, adult; Z85.46 Personal history of malignant neoplasm of prostate; Z79.899 Other long term (current) drug therapy